=== PATIENT | female | born 1960 | race Two or more races ===

== ENCOUNTER 2023-01-04 04:10 | Inpatient (IN) | payer OTHER ==
[~2023-01-04] VITALS: Ht 162.6 cm; Wt 56.5 kg
[2023-01-04] MEDS ORDERED: MIDAZOLAM HCL 5 MG/ML-1ML VIAL IV PRN (04:15)
[2023-01-04 04:25] VITALS: PULSE 81; RESP 18; O2SAT 96
[2023-01-04] MEDS ORDERED: levETIRAcetam 500 MG/5ML INJ IV ONE (05:05)
[2023-01-04 05:15] LABS: Alanine Aminotransferase 19 U/L (7-40); Albumin 2.7 g/dL (3.2-4.8); Alkaline Phosphatase 116 U/L (46-116); Anion Gap 4 (5-15); Aspartate Aminotransferase 42 U/L (13-40); BUN/Creatinine Ratio 19.3 (10.0-20.0); Bilirubin, Total 1.6 mg/dL (0.2-1.0); Blood Urea Nitrogen 11 mg/dL (9-23); Calcium 8.6 mg/dL (8.7-10.4); Carbon Dioxide 27 mmol/L (20-30); Chloride 106 mmol/L (98-107); Glucose 127 mg/dL (74-106); Potassium 3.7 mmol/L (3.5-5.1); Sodium 137 mmol/L (136-145); Total Protein 7.5 g/dL (5.7-8.2)
[2023-01-04 05:17] LABS: INR 1.49 (0.9-1.15); Partial Thromboplastin Time 34.7 SEC (24.5-34.5); Prothrombin Time 15.2 sec (9.3-11.8)
[2023-01-04 05:32] LABS: Basophils # (auto) 0 10 ^3/uL (0-0.2); Basophils % (auto) 0.7 % (0.0-2.0); Eosinophils # (auto) 0.1 10 ^3/uL (0-0.8); Eosinophils % (auto) 3.2 % (0.0-7.0); Hematocrit 30.1 % (36.0-46.0); Hemoglobin 9.9 g/dL (12.2-16.2); Lymphocytes # (auto) 0.9 10 ^3/uL (0.4-5.4); Mean Corpuscular Hemoglobin 31.5 pg (28.0-32.0); Mean Corpuscular Hgb Conc. 32.8 g/dL (32.0-36.0); Mean Corpuscular Volume 95.9 fL (80.0-100.0); Monocytes # (auto) 0.5 10 ^3/uL (0-1.3); Monocytes % (auto) 13.3 % (0.0-12.0); Neutrophils # (auto) 2.1 10 ^3/uL (1.6-8.6); Neutrophils % (auto) 57.8 % (37.0-80.0); Nucleated Red Blood Cells % 0.3 %; Red Blood Cells 3.14 10^6/uL (4.0-5.20); White Blood Cell 3.6 10^3/uL (4.4-10.8)
[2023-01-04 05:33] LABS: Red Cell Distribution Width 20.6 % (11.8-14.3)
[2023-01-04 07:40] VITALS: PULSE 65; RESP 12; O2SAT 100
[2023-01-04 09:03] LABS: Bilirubin, Direct 0.9 mg/dL (<0.3)
[2023-01-04] MEDS ORDERED: ENOXAPARIN SOD 40 MG/0.4 ML SYRINGE SC SCH (10:15)
[2023-01-04] MEDS ORDERED: ONDANSETRON HCL 4 MG/2 ML VIAL IV PRN (10:15)
[2023-01-04 11:33] LABS: Urine Bacteria FEW /hpf (None Seen); Urine Blood Negative /uL (Negative); Urine Clarity HAZY (Clear); Urine Color Yellow (Yellow); Urine Hyaline Cast FEW /lpf (0 - 2); Urine Mucus FEW (None Seen); Urine Protein, UAD TRACE (Negative); Urine Specific Gravity 1.026 (1.001-1.035); Urine WBC 6 /hpf (0 - 5); Urine pH 6.5 (5.0-8.0)
[2023-01-04] MEDS ORDERED: ALBUMIN 5% 250 ML IV ONE (14:00)
[2023-01-04 14:15] LABS: Amphetamine Screen, Urine Neg (NEGATIVE); Barbiturate Scree,Urine Neg (NEGATIVE); Benzodiazephine Screen, Urine Pos (NEGATIVE); Cocaine Screen, Urine Neg (NEGATIVE); Opiate Scree,Urine Neg (NEGATIVE); Phencyclidine Screen, Urine Neg (NEGATIVE)
[2023-01-04 14:16] LABS: Cannabinoid Screen, Urine Neg (NEGATIVE)
[2023-01-04] MEDS: SODIUM CHLORIDE 0.9% 1,000 ML IV SCH (14:50)
[2023-01-04 17:20] LABS: Hepatitis A Ab IgM Negative; Hepatitis B Core IgM Negative; Hepatitis B Surface Antigen Negative (Negative)
[2023-01-04 17:36] LABS: Hepatitis C Antibody Positive (Negative)
[2023-01-04 19:35] VITALS: PULSE 66; RESP 18; O2SAT 96
[2023-01-05] VITALS (8 sets, daily range): BP systolic 133–152; BP diastolic 53–80; PULSE 51–72; RESP 16–20; TEMP 97.1–98.6; O2SAT 99–100
[2023-01-05] MEDS: SODIUM CHLORIDE 0.9% 1,000 ML IV SCH (03:05)
[2023-01-05] MEDS ORDERED: LEVE500T40 PO (03:51)
[2023-01-05] MEDS ORDERED: ZOFR4T PO (03:53)
[2023-01-05 06:51] LABS: Alanine Aminotransferase 13 U/L (7-40); Albumin 2.4 g/dL (3.2-4.8); Alkaline Phosphatase 89 U/L (46-116); Anion Gap 4 (5-15); Aspartate Aminotransferase 40 U/L (13-40); BUN/Creatinine Ratio 12.5 (10.0-20.0); Blood Urea Nitrogen 5 mg/dL (9-23); Calcium 8.2 mg/dL (8.5-10.1); Carbon Dioxide 26 mmol/L (20-30); Chloride 106 mmol/L (98-107); Glucose 76 mg/dL (74-106); Potassium 3.9 mmol/L (3.5-5.1); Sodium 136 mmol/L (136-145)
[2023-01-05 06:52] LABS: Bilirubin, Total 1.8 mg/dL (0.2-1.0); Total Protein 6.7 g/dL (5.7-8.2)
[2023-01-05 08:12] LABS: Basophils # (auto) 0 10 ^3/uL (0-0.2); Basophils % (auto) 0.7 % (0.0-2.0); Eosinophils # (auto) 0.1 10 ^3/uL (0-0.8); Eosinophils % (auto) 4.5 % (0.0-7.0); Hematocrit 27.8 % (36.0-46.0); Hemoglobin 9.1 g/dL (12.2-16.2); Lymphocytes % (auto) 29.7 % (10.0-50.0); Mean Corpuscular Hemoglobin 31.6 pg (28.0-32.0); Mean Corpuscular Hgb Conc. 32.7 g/dL (32.0-36.0); Mean Corpuscular Volume 96.8 fL (80.0-100.0); Monocytes # (auto) 0.5 10 ^3/uL (0-1.3); Monocytes % (auto) 16.7 % (0.0-12.0); Neutrophils # (auto) 1.5 10 ^3/uL (1.6-8.6); Neutrophils % (auto) 48.4 % (37.0-80.0); Nucleated Red Blood Cells % 0.6 %; Red Blood Cells 2.87 10^6/uL (4.0-5.20); Red Cell Distribution Width 19.9 % (11.8-14.3); White Blood Cell 3.2 10^3/uL (4.4-10.8)
[2023-01-05] MEDS: LORazepam 2MG/ML-1ML VIAL IV PRN ×3 (10:11→21:18)
[2023-01-05] MEDS ORDERED: D5W/SOD CHLO 0.9% 1,000 ML IV SCH (11:15)
[2023-01-05] MEDS ORDERED: THIAMINE 100mg/ml INJ (200mg/2ml VIAL) IM ONE (11:15)
[2023-01-05] MEDS ORDERED: CYANOCOBALAMIN (B-12) 1000 MCG/1 ML VIAL IM ONE (11:15)
[2023-01-05] MEDS ORDERED: DEXTROSE (50%) 50ML SYRG IV PRN (11:15)
[2023-01-05] MEDS ORDERED: rifAXIMin 550 MG TAB PO ONE (11:53)
[2023-01-05] MEDS ORDERED: ACCU-CHEK COMFORT CURVE STRIP VI SCH (12:00)
[2023-01-05] MEDS: LACTULOSE 10g/15ml SOLN 473ML PR SCH ×2 (12:00→17:54)
[2023-01-05] MEDS: NEOMYCIN SULFATE 500 MG TAB PO SCH ×2 (12:00→17:53)
[2023-01-05 13:38] LABS: INR 1.49 (0.9-1.15); Partial Thromboplastin Time 33.5 SEC (24.5-34.5); Prothrombin Time 15.2 sec (9.3-11.8)
[2023-01-05] MEDS ORDERED: phytonadione 10 MG in SODIUM CHL 0.9% 50 ML IV ONE (16:00)
[2023-01-05] MEDS ORDERED: CLINIMIX PER PHARMACY 0 ML IV SCH (16:00)
[2023-01-05] MEDS ORDERED: ACAM1TAB PO (16:34)
[2023-01-05] MEDS ORDERED: KEP500T PO (16:34)
[2023-01-05] MEDS ORDERED: PANT40TA2 PO (16:34)
[2023-01-05] MEDS ORDERED: ONDA-155 PO (16:34)
[2023-01-05] MEDS ORDERED: LACO150T3 PO (16:34)
[2023-01-05] MEDS ORDERED: FOLI-119 PO (16:34)
[2023-01-05] MEDS ORDERED: SODIUM CHLORIDE 0.9% 1,000 ML IV SCH (19:30)
[2023-01-05] MEDS ORDERED: AMINO ACID INFUSION IN D10W 1,000 ML IV NR (20:00)
[2023-01-05] MEDS ORDERED: DEXTROSE (50%) 50ML SYRG IV SCH (20:00)
[2023-01-05] MEDS ORDERED: PATIENTS OWN MEDICATION PO SCH (22:00)
[2023-01-05] MEDS: rifAXIMin 550 MG TAB PO SCH (22:00)
[2023-01-06] VITALS (14 sets, daily range): BP systolic 102–128; BP diastolic 50–88; PULSE 53–71; RESP 16–25; TEMP 97.5–98; O2SAT 92–100
[2023-01-06] MEDS: ACCU-CHEK COMFORT CURVE STRIP VI SCH ×4 (00:03→15:59)
[2023-01-06] MEDS: LORazepam 2MG/ML-1ML VIAL IV PRN ×2 (01:32→10:55)
[2023-01-06] MEDS: InsuLIN REG 1unit/0.01ml Soln (100units/ml) SC SCH ×4 (05:31→15:59)
[2023-01-06] MEDS: LACTULOSE 10g/15ml SOLN 473ML PR SCH ×3 (05:31→11:32)
[2023-01-06] MEDS: NEOMYCIN SULFATE 500 MG TAB PO SCH ×4 (05:31→14:53)
[2023-01-06 06:41] LABS: Basophils # (auto) 0 10 ^3/uL (0-0.2); Basophils % (auto) 0.6 % (0.0-2.0); Eosinophils # (auto) 0.2 10 ^3/uL (0-0.8); Eosinophils % (auto) 4.8 % (0.0-7.0); Hemoglobin 8.8 g/dL (12.2-16.2); Lymphocytes # (auto) 0.9 10 ^3/uL (0.4-5.4); Lymphocytes % (auto) 26.8 % (10.0-50.0); Mean Corpuscular Hemoglobin 31.4 pg (28.0-32.0); Mean Corpuscular Hgb Conc. 32.8 g/dL (32.0-36.0); Mean Corpuscular Volume 95.7 fL (80.0-100.0); Monocytes # (auto) 0.5 10 ^3/uL (0-1.3); Monocytes % (auto) 13.9 % (0.0-12.0); Neutrophils # (auto) 1.8 10 ^3/uL (1.6-8.6); Neutrophils % (auto) 53.9 % (37.0-80.0); Nucleated Red Blood Cells % 0.3 %; Red Blood Cells 2.82 10^6/uL (4.0-5.20); White Blood Cell 3.3 10^3/uL (4.4-10.8)
[2023-01-06 06:52] LABS: Red Cell Distribution Width 20.2 % (11.8-14.3)
[2023-01-06 06:54] LABS: Alanine Aminotransferase 10 U/L (7-40); Alkaline Phosphatase 82 U/L (46-116); Chloride 106 mmol/L (98-107)
[2023-01-06 06:55] LABS: Albumin 2.4 g/dL (3.2-4.8); Aspartate Aminotransferase 36 U/L (13-40); Glucose 104 mg/dL (74-106); Potassium 3.2 mmol/L (3.5-5.1); Sodium 135 mmol/L (136-145)
[2023-01-06 07:00] LABS: INR 1.49 (0.9-1.15); Partial Thromboplastin Time 35.3 SEC (24.5-34.5); Prothrombin Time 15.2 sec (9.3-11.8)
[2023-01-06] MEDS: rifAXIMin 550 MG TAB PO SCH ×2 (07:05→21:52)
[2023-01-06 07:08] LABS: CRP High Sensitivity 0.08 mg/dL (<1.0); Magnesium 1.3 mg/dL (1.6-2.6)
[2023-01-06 07:09] LABS: Phosphorus 3.6 mg/dL (2.4-5.1)
[2023-01-06 07:10] LABS: Bilirubin, Total 1.5 mg/dL (0.2-1.0); Total Protein 6.4 g/dL (5.7-8.2)
[2023-01-06 07:25] LABS: Anion Gap 3 (5-15); BUN/Creatinine Ratio 17.9 (10.0-20.0); Blood Urea Nitrogen 7 mg/dL (9-23); Carbon Dioxide 26 mmol/L (20-30)
[2023-01-06 08:39] LABS: Erythrocyte Sedimentation Rate 21 mm/hr (0-20)
[2023-01-06] MEDS ORDERED: LACTULOSE 20Gm/30ML SOLN PO ONE (08:45)
[2023-01-06] MEDS: THIAMINE 100mg/ml INJ (200mg/2ml VIAL) IV SCH (09:35)
[2023-01-06] MEDS ORDERED: MAGNESIUM SULFATE 1GM/100ML 100 ML IV ONE (10:00)
[2023-01-06] MEDS: POTASSIUM CHL 20MEQ/100ML 100 ML IV SCH ×2 (10:20→12:50)
[2023-01-06] MEDS: FOLIC ACID 1 MG in D5W 5% 50 ML INJ SCH (11:10)
[2023-01-06] MEDS: SODIUM CHLORIDE 0.9% 1,000 ML IV SCH (11:10)
[2023-01-06] MEDS ORDERED: PPN PER PHARMACY 0 ML IV SCH (11:15)
[2023-01-06] MEDS ORDERED: LACTULOSE 20Gm/30ML SOLN PO SCH (12:00)
[2023-01-06] MEDS ORDERED: LACTULOSE 10g/15ml SOLN 473ML PR SCH (14:00)
[2023-01-06 15:45] LABS: Alanine Aminotransferase 14 U/L (7-40); Albumin 2.6 g/dL (3.2-4.8); Alkaline Phosphatase 89 U/L (46-116); Anion Gap 6 (5-15); Aspartate Aminotransferase 48 U/L (13-40); Blood Urea Nitrogen 6 mg/dL (9-23); Calcium 7.9 mg/dL (8.7-10.4); Carbon Dioxide 25 mmol/L (20-30); Chloride 103 mmol/L (98-107); Glucose 113 mg/dL (74-106); Sodium 134 mmol/L (136-145)
[2023-01-06 15:46] LABS: Bilirubin, Total 1.3 mg/dL (0.2-1.0); Total Protein 6.9 g/dL (5.7-8.2)
[2023-01-06 15:56] LABS: INR 1.44 (0.9-1.15); Partial Thromboplastin Time 33.4 SEC (24.5-34.5); Prothrombin Time 14.8 sec (9.3-11.8)
[2023-01-06 16:06] LABS: Base Excess -1.4 mmol/L (-2.0-2.0)
[2023-01-06] MEDS ORDERED: FAT EMULSION IV NR ×9 (20:00)
[2023-01-06] MEDS ORDERED: SODIUM ACETATE IV NR ×9 (20:00)
[2023-01-06] MEDS ORDERED: [UNRECOGNIZED DRUG - OTHER] IV NR ×9 (20:00)
[2023-01-06] MEDS ORDERED: POTASSIUM CHLORIDE IV NR ×9 (20:00)
[2023-01-06] MEDS: FAMOTIDINE (10MG/ML) 2ML VL IV SCH (21:52)
[2023-01-06] MEDS: LACTULOSE 20Gm/30ML SOLN PO SCH (21:52)
[2023-01-07] VITALS (18 sets, daily range): BP systolic 97–134; BP diastolic 44–78; PULSE 62–111; RESP 16–28; TEMP 96.3–101.8; O2SAT 91–100
[2023-01-07] MEDS: SODIUM CHLORIDE 0.9% 1,000 ML IV SCH (00:18)
[2023-01-07] MEDS: LORazepam 2MG/ML-1ML VIAL IV PRN (00:56)
[2023-01-07] MEDS: ACCU-CHEK COMFORT CURVE STRIP VI SCH ×5 (00:56→23:12)
[2023-01-07] MEDS: LACTULOSE 20Gm/30ML SOLN PO SCH ×5 (02:04→23:36)
[2023-01-07 05:26] LABS: Alanine Aminotransferase 15 U/L (7-40); Alkaline Phosphatase 92 U/L (46-116); Anion Gap 7 (5-15); Aspartate Aminotransferase 42 U/L (13-40); BUN/Creatinine Ratio 14.3 (10.0-20.0); Blood Urea Nitrogen 7 mg/dL (9-23); Chloride 104 mmol/L (98-107); Glucose 122 mg/dL (74-106); Lipase 93 U/L (12-53); Magnesium 1.3 mg/dL (1.6-2.6); Potassium 3.5 mmol/L (3.5-5.1); Sodium 134 mmol/L (136-145)
[2023-01-07 05:27] LABS: Albumin 2.7 g/dL (3.2-4.8); Bilirubin, Total 1.6 mg/dL (0.2-1.0); Phosphorus 2.4 mg/dL (2.4-5.1); Total Protein 7.2 g/dL (5.7-8.2)
[2023-01-07 05:31] LABS: Carbon Dioxide 22 mmol/L (20-30)
[2023-01-07 05:38] LABS: INR 1.42 (0.9-1.15); Partial Thromboplastin Time 32.3 SEC (24.5-34.5); Prothrombin Time 14.6 sec (9.3-11.8)
[2023-01-07 05:41] LABS: Triglycerides 36 mg/dL (< 150)
[2023-01-07] MEDS: NEOMYCIN SULFATE 500 MG TAB PO SCH ×5 (05:46→23:12)
[2023-01-07] MEDS: InsuLIN REG 1unit/0.01ml Soln (100units/ml) SC SCH ×5 (06:00→23:36)
[2023-01-07 06:36] LABS: Erythrocyte Sedimentation Rate 23 mm/hr (0-20)
[2023-01-07 06:58] LABS: Hematocrit 31.3 % (36.0-46.0); Mean Corpuscular Hemoglobin 30.5 pg (28.0-32.0); Mean Corpuscular Hgb Conc. 31.9 g/dL (32.0-36.0); Mean Corpuscular Volume 95.6 fL (80.0-100.0); Red Blood Cells 3.27 10^6/uL (4.0-5.20); Red Cell Distribution Width 19.7 % (11.8-14.3); White Blood Cell 12.2 10^3/uL (4.4-10.8)
[2023-01-07] MEDS: FAMOTIDINE (10MG/ML) 2ML VL IV SCH ×2 (07:26→23:11)
[2023-01-07] MEDS: THIAMINE 100mg/ml INJ (200mg/2ml VIAL) IV SCH (07:26)
[2023-01-07 07:34] LABS: Basophils % (manual) 0 (0.0-2.0); Blast Cells 0; Eosinophils % (manual) 0 (0-7); Lymphocytes % (manual) 0 (10.0-50.0); Metamyelocytes % 0; Myelocytes % 0; Promyelocytes % 0; Reactive Lymphocytes 0
[2023-01-07 08:03] LABS: Band Neutrophils % (manual) 3; Monocytes % (manual) 3 (0-12)
[2023-01-07 08:04] LABS: Platelet Estimate Adequate
[2023-01-07] MEDS: rifAXIMin 550 MG TAB PO SCH ×2 (09:50→23:11)
[2023-01-07] MEDS: FOLIC ACID 1 MG in D5W 5% 50 ML INJ SCH (10:34)
[2023-01-07] MEDS ORDERED: MAGNESIUM SULFATE 1GM/100ML 100 ML IV ONE ×2 (12:00→14:00)
[2023-01-07] MEDS ORDERED: cefTRIAXone 1GM/50ML D5W 50 ML IV ONE (12:30)
[2023-01-07] MEDS ORDERED: VANCOMYCIN 1GM/250ML 250 ML IV ONE (14:00)
[2023-01-07] MEDS ORDERED: POTASSIUM CHL 20MEQ/100ML 100 ML IV ONE (14:00)
[2023-01-07] MEDS ORDERED: VANCOMYCIN PER PHARMACY 0 MG IV SCH (14:00)
[2023-01-07] MEDS ORDERED: SODIUM CHLORIDE 0.9% 1,000 ML IV SCH (15:00)
[2023-01-07] MEDS ORDERED: LACTULOSE 20Gm/30ML SOLN PO SCH (16:00)
[2023-01-07] MEDS ORDERED: [UNRECOGNIZED DRUG - OTHER] IV NR ×10 (20:00)
[2023-01-07] MEDS ORDERED: POTASSIUM ACETATE IV NR ×10 (20:00)
[2023-01-07] MEDS ORDERED: SODIUM ACETATE IV NR ×10 (20:00)
[2023-01-07] MEDS ORDERED: FAT EMULSION IV NR ×10 (20:00)
[2023-01-08] VITALS (21 sets, daily range): BP systolic 103–141; BP diastolic 52–76; PULSE 56–89; RESP 9–29; TEMP 96.6–97.8; O2SAT 90–100
[2023-01-08] MEDS: VANCOMYCIN 750mg/250ml 250 ML IV SCH ×2 (01:54→18:22)
[2023-01-08 05:05] LABS: Basophils # (auto) 0 10 ^3/uL (0-0.2); Basophils % (auto) 0.2 % (0.0-2.0); Eosinophils # (auto) 0.3 10 ^3/uL (0-0.8); Eosinophils % (auto) 3.3 % (0.0-7.0); Hematocrit 28.6 % (36.0-46.0); Hemoglobin 9.3 g/dL (12.2-16.2); Lymphocytes # (auto) 0.7 10 ^3/uL (0.4-5.4); Lymphocytes % (auto) 8.2 % (10.0-50.0); Mean Corpuscular Hemoglobin 31.2 pg (28.0-32.0); Mean Corpuscular Hgb Conc. 32.7 g/dL (32.0-36.0); Mean Corpuscular Volume 95.6 fL (80.0-100.0); Monocytes # (auto) 0.7 10 ^3/uL (0-1.3); Monocytes % (auto) 8.2 % (0.0-12.0); Neutrophils # (auto) 6.6 10 ^3/uL (1.6-8.6); Neutrophils % (auto) 80.1 % (37.0-80.0); Red Blood Cells 2.99 10^6/uL (4.0-5.20); Red Cell Distribution Width 19.8 % (11.8-14.3); White Blood Cell 8.3 10^3/uL (4.4-10.8)
[2023-01-08 05:23] LABS: Alanine Aminotransferase 14 U/L (7-40); Albumin 2.5 g/dL (3.2-4.8); Alkaline Phosphatase 87 U/L (46-116); Anion Gap 3 (5-15); Aspartate Aminotransferase 43 U/L (13-40); BUN/Creatinine Ratio 18.2 (10.0-20.0); Bilirubin, Total 1.4 mg/dL (0.2-1.0); Blood Urea Nitrogen 8 mg/dL (9-23); Carbon Dioxide 26 mmol/L (20-30); Chloride 104 mmol/L (98-107); Glucose 106 mg/dL (74-106); Magnesium 1.7 mg/dL (1.6-2.6); Phosphorus 2.7 mg/dL (2.4-5.1); Potassium 3.2 mmol/L (3.5-5.1); Sodium 133 mmol/L (136-145); Total Protein 6.7 g/dL (5.7-8.2)
[2023-01-08] MEDS: LACTULOSE 20Gm/30ML SOLN PO SCH ×3 (05:32→21:38)
[2023-01-08] MEDS: NEOMYCIN SULFATE 500 MG TAB PO SCH ×3 (05:32→18:00)
[2023-01-08] MEDS: ACCU-CHEK COMFORT CURVE STRIP VI SCH ×3 (05:32→18:22)
[2023-01-08] MEDS: InsuLIN REG 1unit/0.01ml Soln (100units/ml) SC SCH ×3 (05:41→18:00)
[2023-01-08 08:44] LABS: Erythrocyte Sedimentation Rate 24 mm/hr (0-20)
[2023-01-08] MEDS: cefTRIAXone 1GM/50ML D5W 50 ML IV SCH (09:13)
[2023-01-08 09:25] LABS: INR 1.71 (0.9-1.15); Prothrombin Time 17.3 sec (9.3-11.8)
[2023-01-08] MEDS: rifAXIMin 550 MG TAB PO SCH ×2 (10:00→22:18)
[2023-01-08] MEDS: FAMOTIDINE (10MG/ML) 2ML VL IV SCH ×2 (10:15→21:37)
[2023-01-08] MEDS: THIAMINE 100mg/ml INJ (200mg/2ml VIAL) IV SCH (10:15)
[2023-01-08] MEDS: FOLIC ACID 1 MG in D5W 5% 50 ML INJ SCH (10:15)
[2023-01-08] MEDS: POTASSIUM CHL 20MEQ/100ML 100 ML IV SCH ×2 (10:45→13:04)
[2023-01-08] MEDS ORDERED: SODIUM CHLORIDE 0.9% 1,000 ML IV SCH (17:30)
[2023-01-08] MEDS ORDERED: PPN PER PHARMACY IV NR ×11 (20:00)
[2023-01-08] MEDS: LORazepam 2MG/ML-1ML VIAL IV PRN (20:59)
[2023-01-08] MEDS: LACOSAMIDE 50 MG TAB PO SCH (21:37)
[2023-01-09] VITALS (16 sets, daily range): BP systolic 127–152; BP diastolic 56–80; PULSE 60–113; RESP 13–28; TEMP 97.2–99.7; O2SAT 82–100
[2023-01-09] MEDS: InsuLIN REG 1unit/0.01ml Soln (100units/ml) SC SCH ×4 (01:00→18:00)
[2023-01-09] MEDS: NEOMYCIN SULFATE 500 MG TAB PO SCH ×4 (01:17→18:00)
[2023-01-09] MEDS: ACCU-CHEK COMFORT CURVE STRIP VI SCH ×4 (01:18→18:00)
[2023-01-09] MEDS: VANCOMYCIN 750mg/250ml 250 ML IV SCH ×2 (01:27→14:00)
[2023-01-09 05:19] LABS: Basophils # (auto) 0 10 ^3/uL (0-0.2); Basophils % (auto) 0.3 % (0.0-2.0); Eosinophils # (auto) 0.3 10 ^3/uL (0-0.8); Hematocrit 28.9 % (36.0-46.0); Hemoglobin 9.5 g/dL (12.2-16.2); Lymphocytes # (auto) 0.5 10 ^3/uL (0.4-5.4); Lymphocytes % (auto) 8.7 % (10.0-50.0); Mean Corpuscular Hemoglobin 31.3 pg (28.0-32.0); Mean Corpuscular Volume 94.7 fL (80.0-100.0); Monocytes # (auto) 0.6 10 ^3/uL (0-1.3); Monocytes % (auto) 10.2 % (0.0-12.0); Neutrophils # (auto) 4.9 10 ^3/uL (1.6-8.6); Neutrophils % (auto) 76.8 % (37.0-80.0); Nucleated Red Blood Cells % 0.1 %; Red Blood Cells 3.05 10^6/uL (4.0-5.20); White Blood Cell 6.3 10^3/uL (4.4-10.8)
[2023-01-09 05:35] LABS: Alanine Aminotransferase 15 U/L (7-40); Albumin 2.6 g/dL (3.2-4.8); Alkaline Phosphatase 96 U/L (46-116); Anion Gap 2 (5-15); Aspartate Aminotransferase 46 U/L (13-40); Bilirubin, Total 1.4 mg/dL (0.2-1.0); Calcium 8.2 mg/dL (8.7-10.4); Carbon Dioxide 27 mmol/L (20-30); Chloride 104 mmol/L (98-107); Glucose 108 mg/dL (74-106); Lipase 61 U/L (12-53); Magnesium 1.7 mg/dL (1.6-2.6); Phosphorus 3.5 mg/dL (2.4-5.1); Potassium 3.6 mmol/L (3.5-5.1); Sodium 133 mmol/L (136-145)
[2023-01-09 05:40] LABS: BUN/Creatinine Ratio 14.7 (10.0-20.0); Blood Urea Nitrogen < 5 mg/dL (9-23)
[2023-01-09 06:09] LABS: Triglycerides 40 mg/dL (< 150)
[2023-01-09] MEDS: SODIUM CHLORIDE 0.9% 1,000 ML IV SCH (07:15)
[2023-01-09 08:31] LABS: INR 1.6 (0.9-1.15); Prothrombin Time 16.3 sec (9.3-11.8)
[2023-01-09 09:02] LABS: Erythrocyte Sedimentation Rate 29 mm/hr (0-20)
[2023-01-09] MEDS: cefTRIAXone 1GM/50ML D5W 50 ML IV SCH (09:30)
[2023-01-09] MEDS: LACOSAMIDE 50 MG TAB PO SCH ×2 (09:30→22:08)
[2023-01-09] MEDS ORDERED: LORazepam 2MG/ML-1ML VIAL IV PRN ×2 (09:45→11:45)
[2023-01-09] MEDS: rifAXIMin 550 MG TAB PO SCH ×2 (10:00→22:24)
[2023-01-09] MEDS: LACTULOSE 20Gm/30ML SOLN PO SCH ×3 (10:00→18:00)
[2023-01-09] MEDS: FAMOTIDINE (10MG/ML) 2ML VL IV SCH ×2 (10:22→22:08)
[2023-01-09] MEDS: THIAMINE 100mg/ml INJ (200mg/2ml VIAL) IV SCH (10:22)
[2023-01-09] MEDS: FOLIC ACID 1 MG in D5W 5% 50 ML INJ SCH (10:23)
[2023-01-10] VITALS (21 sets, daily range): BP systolic 85–146; BP diastolic 47–77; PULSE 61–88; RESP 12–26; TEMP 98–98.5; O2SAT 92–100
[2023-01-10] MEDS: ACCU-CHEK COMFORT CURVE STRIP VI SCH ×5 (00:32→23:38)
[2023-01-10] MEDS: NEOMYCIN SULFATE 500 MG TAB PO SCH ×5 (00:33→23:32)
[2023-01-10] MEDS: LACTULOSE 20Gm/30ML SOLN PO SCH ×3 (00:33→18:00)
[2023-01-10] MEDS: VANCOMYCIN 750mg/250ml 250 ML IV SCH ×2 (01:47→14:00)
[2023-01-10] MEDS: SODIUM CHLORIDE 0.9% 1,000 ML IV SCH (03:22)
[2023-01-10 05:34] LABS: Basophils # (auto) 0 10 ^3/uL (0-0.2); Basophils % (auto) 0.3 % (0.0-2.0); Eosinophils # (auto) 0.2 10 ^3/uL (0-0.8); Eosinophils % (auto) 4.4 % (0.0-7.0); Hematocrit 27.3 % (36.0-46.0); Hemoglobin 9.1 g/dL (12.2-16.2); Lymphocytes # (auto) 0.8 10 ^3/uL (0.4-5.4); Lymphocytes % (auto) 16.6 % (10.0-50.0); Mean Corpuscular Hemoglobin 31.5 pg (28.0-32.0); Mean Corpuscular Hgb Conc. 33.4 g/dL (32.0-36.0); Mean Corpuscular Volume 94.2 fL (80.0-100.0); Monocytes # (auto) 0.7 10 ^3/uL (0-1.3); Monocytes % (auto) 14.6 % (0.0-12.0); Neutrophils % (auto) 64.1 % (37.0-80.0); Nucleated Red Blood Cells % 0.1 %; Red Cell Distribution Width 19.6 % (11.8-14.3); White Blood Cell 4.7 10^3/uL (4.4-10.8)
[2023-01-10 05:43] LABS: INR 1.55 (0.9-1.15); Partial Thromboplastin Time 40.1 SEC (24.5-34.5); Prothrombin Time 15.8 sec (9.3-11.8)
[2023-01-10 05:51] LABS: Alanine Aminotransferase 17 U/L (7-40); Albumin 2.6 g/dL (3.2-4.8); Alkaline Phosphatase 87 U/L (46-116); Anion Gap 5 (5-15); Aspartate Aminotransferase 44 U/L (13-40); BUN/Creatinine Ratio 10.9 (10.0-20.0); Blood Urea Nitrogen 5 mg/dL (9-23); Calcium 8.1 mg/dL (8.7-10.4); Carbon Dioxide 27 mmol/L (20-30); Chloride 103 mmol/L (98-107); Glucose 88 mg/dL (74-106); Lipase 57 U/L (12-53); Magnesium 1.7 mg/dL (1.6-2.6); Potassium 3.3 mmol/L (3.5-5.1); Sodium 135 mmol/L (136-145)
[2023-01-10 05:52] LABS: Bilirubin, Total 1.2 mg/dL (0.2-1.0); Phosphorus 4.2 mg/dL (2.4-5.1); Total Protein 6.5 g/dL (5.7-8.2)
[2023-01-10] MEDS: InsuLIN REG 1unit/0.01ml Soln (100units/ml) SC SCH ×5 (06:00→23:38)
[2023-01-10 06:19] LABS: Erythrocyte Sedimentation Rate 33 mm/hr (0-20)
[2023-01-10] MEDS ORDERED: MAGNESIUM OXIDE 400 MG TAB PO ONE (07:45)
[2023-01-10] MEDS ORDERED: POTASSIUM CHL 20 Meq TABLET PO ONE (07:45)
[2023-01-10] MEDS: cefTRIAXone 1GM/50ML D5W 50 ML IV SCH (09:10)
[2023-01-10] MEDS: THIAMINE 100mg/ml INJ (200mg/2ml VIAL) IV SCH (10:40)
[2023-01-10] MEDS: FAMOTIDINE (10MG/ML) 2ML VL IV SCH ×2 (10:40→21:46)
[2023-01-10] MEDS: FOLIC ACID 1 MG in D5W 5% 50 ML INJ SCH (10:43)
[2023-01-10] MEDS: LACOSAMIDE 50 MG TAB PO SCH ×2 (10:44→21:15)
[2023-01-10] MEDS: rifAXIMin 550 MG TAB PO SCH ×2 (10:45→21:47)
[2023-01-10] MEDS ORDERED: LACTULOSE 20Gm/30ML SOLN PO SCH (14:00)
[2023-01-10] MEDS: LINEZOLID 600MG/300ML 300 ML IV SCH ×2 (16:00→18:00)
[2023-01-11] VITALS (17 sets, daily range): BP systolic 100–149; BP diastolic 43–80; PULSE 63–94; RESP 17–32; TEMP 97.5–103; O2SAT 90–98
[2023-01-11] MEDS: SODIUM CHLORIDE 0.9% 1,000 ML IV SCH ×2 (04:18→12:15)
[2023-01-11] MEDS ORDERED: ACETAMINOPHEN 650 mg PER 20.3 mL UD PO PRN (04:45)
[2023-01-11 05:15] LABS: Basophils # (auto) 0 10 ^3/uL (0-0.2); Basophils % (auto) 0.5 % (0.0-2.0); Eosinophils # (auto) 0.2 10 ^3/uL (0-0.8); Eosinophils % (auto) 4.4 % (0.0-7.0); Hematocrit 26.5 % (36.0-46.0); Hemoglobin 8.8 g/dL (12.2-16.2); Lymphocytes % (auto) 23.9 % (10.0-50.0); Mean Corpuscular Hemoglobin 31.6 pg (28.0-32.0); Mean Corpuscular Hgb Conc. 33.4 g/dL (32.0-36.0); Mean Corpuscular Volume 94.8 fL (80.0-100.0); Monocytes # (auto) 0.6 10 ^3/uL (0-1.3); Neutrophils # (auto) 2.4 10 ^3/uL (1.6-8.6); Neutrophils % (auto) 57.2 % (37.0-80.0); Red Blood Cells 2.79 10^6/uL (4.0-5.20); Red Cell Distribution Width 19.5 % (11.8-14.3); White Blood Cell 4.2 10^3/uL (4.4-10.8)
[2023-01-11] MEDS: NEOMYCIN SULFATE 500 MG TAB PO SCH ×4 (05:22→23:15)
[2023-01-11] MEDS: LINEZOLID 600MG/300ML 300 ML IV SCH ×2 (05:22→18:06)
[2023-01-11 05:28] LABS: Alanine Aminotransferase 16 U/L (7-40); Albumin 2.6 g/dL (3.2-4.8); Alkaline Phosphatase 89 U/L (46-116); Anion Gap 4 (5-15); Aspartate Aminotransferase 42 U/L (13-40); BUN/Creatinine Ratio 10.2 (10.0-20.0); Bilirubin, Total 1.1 mg/dL (0.2-1.0); Blood Urea Nitrogen 6 mg/dL (9-23); Carbon Dioxide 26 mmol/L (20-30); Chloride 106 mmol/L (98-107); Glucose 89 mg/dL (74-106); Lipase 80 U/L (12-53); Magnesium 1.6 mg/dL (1.6-2.6); Potassium 3.9 mmol/L (3.5-5.1); Sodium 136 mmol/L (136-145); Total Protein 6.4 g/dL (5.7-8.2)
[2023-01-11] MEDS: InsuLIN REG 1unit/0.01ml Soln (100units/ml) SC SCH ×3 (05:59→18:00)
[2023-01-11] MEDS: ACCU-CHEK COMFORT CURVE STRIP VI SCH ×4 (05:59→23:16)
[2023-01-11] MEDS ORDERED: MAGNESIUM OXIDE 400 MG TAB PO ONE (07:45)
[2023-01-11] MEDS ORDERED: IOHEXOL 300 MG/ML 100ML BOTTLE IJ ONE (08:09)
[2023-01-11] MEDS: cefTRIAXone 1GM/50ML D5W 50 ML IV SCH (08:48)
[2023-01-11] MEDS: THIAMINE 100mg/ml INJ (200mg/2ml VIAL) IV SCH (10:59)
[2023-01-11] MEDS: LACOSAMIDE 50 MG TAB PO SCH ×2 (11:00→11:40)
[2023-01-11] MEDS: FOLIC ACID 1 MG in D5W 5% 50 ML INJ SCH (11:00)
[2023-01-11] MEDS: FAMOTIDINE (10MG/ML) 2ML VL IV SCH ×2 (11:00→23:15)
[2023-01-11] MEDS: LACTULOSE 20Gm/30ML SOLN PO SCH ×2 (11:38→23:16)
[2023-01-11] MEDS: rifAXIMin 550 MG TAB PO SCH ×2 (11:38→23:16)
[2023-01-11 16:35] LABS: Urine Bacteria FEW /hpf (None Seen); Urine Blood Negative /uL (Negative); Urine Clarity Clear (Clear); Urine Color Colorless (Yellow); Urine Mucus FEW (None Seen); Urine Protein, UAD Negative (Negative); Urine Specific Gravity 1.021 (1.001-1.035); Urine Urobilinogen Normal (Negative); Urine WBC 8 /hpf (0 - 5)
[2023-01-12] MEDS: NEOMYCIN SULFATE 500 MG TAB PO SCH ×4 (05:06→23:39)
[2023-01-12] MEDS: LINEZOLID 600MG/300ML 300 ML IV SCH ×2 (05:07→18:18)
[2023-01-12] MEDS: ACCU-CHEK COMFORT CURVE STRIP VI SCH ×4 (05:10→23:39)
[2023-01-12] MEDS: SODIUM CHLORIDE 0.9% 1,000 ML IV SCH (05:11)
[2023-01-12] MEDS: InsuLIN REG 1unit/0.01ml Soln (100units/ml) SC SCH ×5 (05:27→23:39)
[2023-01-12 06:21] LABS: Alanine Aminotransferase 13 U/L (7-40); Alkaline Phosphatase 86 U/L (46-116); Anion Gap 4 (5-15); Calcium 7.9 mg/dL (8.7-10.4); Carbon Dioxide 27 mmol/L (20-30); Chloride 106 mmol/L (98-107); Glucose 87 mg/dL (74-106); Lipase 90 U/L (12-53); Potassium 3.7 mmol/L (3.5-5.1); Sodium 137 mmol/L (136-145)
[2023-01-12 06:22] LABS: Magnesium 1.6 mg/dL (1.6-2.6)
[2023-01-12 06:23] LABS: Albumin 2.6 g/dL (3.2-4.8); Aspartate Aminotransferase 40 U/L (13-40)
[2023-01-12 06:24] LABS: Total Protein 6.5 g/dL (5.7-8.2)
[2023-01-12 06:29] LABS: BUN/Creatinine Ratio 9.1 (10.0-20.0); Blood Urea Nitrogen < 5 mg/dL (9-23)
[2023-01-12 06:46] LABS: Basophils # (auto) 0 10 ^3/uL (0-0.2); Basophils % (auto) 0.6 % (0.0-2.0); Eosinophils # (auto) 0.2 10 ^3/uL (0-0.8); Eosinophils % (auto) 3.8 % (0.0-7.0); Hematocrit 26.9 % (36.0-46.0); Hemoglobin 8.9 g/dL (12.2-16.2); Lymphocytes # (auto) 0.8 10 ^3/uL (0.4-5.4); Lymphocytes % (auto) 19.9 % (10.0-50.0); Mean Corpuscular Hemoglobin 31.7 pg (28.0-32.0); Mean Corpuscular Hgb Conc. 33.1 g/dL (32.0-36.0); Mean Corpuscular Volume 95.7 fL (80.0-100.0); Monocytes # (auto) 0.6 10 ^3/uL (0-1.3); Monocytes % (auto) 13.8 % (0.0-12.0); Neutrophils # (auto) 2.6 10 ^3/uL (1.6-8.6); Neutrophils % (auto) 61.9 % (37.0-80.0); Red Blood Cells 2.81 10^6/uL (4.0-5.20); Red Cell Distribution Width 19.7 % (11.8-14.3); White Blood Cell 4.2 10^3/uL (4.4-10.8)
[2023-01-12 08:00] VITALS: PULSE 79; PULSE 82; RESP 17; O2SAT 95
[2023-01-12] MEDS ORDERED: MAGNESIUM OXIDE 400 MG TAB PO ONE (08:15)
[2023-01-12 09:00] VITALS: BP 121/68; PULSE 79; RESP 20; TEMP 98.1; O2SAT 93
[2023-01-12 09:41] LABS: INR 1.55 (0.9-1.15); Partial Thromboplastin Time 37.1 SEC (24.5-34.5); Prothrombin Time 15.8 sec (9.3-11.8)
[2023-01-12] MEDS: cefTRIAXone 1GM/50ML D5W 50 ML IV SCH (09:48)
[2023-01-12] MEDS: LACOSAMIDE 50 MG TAB PO SCH ×2 (09:48→21:13)
[2023-01-12] MEDS: THIAMINE 100mg/ml INJ (200mg/2ml VIAL) IV SCH (09:49)
[2023-01-12] MEDS: FAMOTIDINE (10MG/ML) 2ML VL IV SCH ×2 (09:49→21:16)
[2023-01-12] MEDS: LACTULOSE 20Gm/30ML SOLN PO SCH ×3 (09:49→21:16)
[2023-01-12] MEDS: rifAXIMin 550 MG TAB PO SCH ×2 (10:52→21:28)
[2023-01-12] MEDS: FOLIC ACID 1 MG in D5W 5% 50 ML INJ SCH (10:53)
[2023-01-12 12:10] LABS: Erythrocyte Sedimentation Rate 29 mm/hr (0-20)
[2023-01-12 13:00] VITALS: BP 104/58; PULSE 71; RESP 17; TEMP 97.2; O2SAT 95
[2023-01-12 16:56] VITALS: BP 104/64; PULSE 69; RESP 17; TEMP 98.2; O2SAT 98
[2023-01-12 20:00] VITALS: PULSE 68; PULSE 79; RESP 17; O2SAT 95
[2023-01-13] MEDS: LACTULOSE 20Gm/30ML SOLN PO SCH ×3 (05:09→21:27)
[2023-01-13] MEDS: NEOMYCIN SULFATE 500 MG TAB PO SCH ×3 (05:10→18:17)
[2023-01-13] MEDS: ACCU-CHEK COMFORT CURVE STRIP VI SCH ×3 (05:11→18:17)
[2023-01-13] MEDS: LINEZOLID 600MG/300ML 300 ML IV SCH ×2 (05:11→18:17)
[2023-01-13] MEDS: InsuLIN REG 1unit/0.01ml Soln (100units/ml) SC SCH ×3 (05:14→18:00)
[2023-01-13 05:18] LABS: Basophils # (auto) 0 10 ^3/uL (0-0.2); Basophils % (auto) 0.6 % (0.0-2.0); Eosinophils # (auto) 0.2 10 ^3/uL (0-0.8); Eosinophils % (auto) 5.6 % (0.0-7.0); Hematocrit 27.6 % (36.0-46.0); Hemoglobin 9.3 g/dL (12.2-16.2); Lymphocytes # (auto) 0.8 10 ^3/uL (0.4-5.4); Lymphocytes % (auto) 22.4 % (10.0-50.0); Mean Corpuscular Hemoglobin 31.8 pg (28.0-32.0); Mean Corpuscular Hgb Conc. 33.6 g/dL (32.0-36.0); Mean Corpuscular Volume 94.6 fL (80.0-100.0); Monocytes # (auto) 0.5 10 ^3/uL (0-1.3); Monocytes % (auto) 13.9 % (0.0-12.0); Neutrophils # (auto) 2.1 10 ^3/uL (1.6-8.6); Neutrophils % (auto) 57.5 % (37.0-80.0); Nucleated Red Blood Cells % 0.2 %; Red Blood Cells 2.92 10^6/uL (4.0-5.20); Red Cell Distribution Width 19.4 % (11.8-14.3); White Blood Cell 3.7 10^3/uL (4.4-10.8)
[2023-01-13 05:45] LABS: Alanine Aminotransferase 17 U/L (7-40); Albumin 2.4 g/dL (3.2-4.8); Alkaline Phosphatase 87 U/L (46-116); Anion Gap 5 (5-15); Aspartate Aminotransferase 43 U/L (13-40); BUN/Creatinine Ratio 12.8 (10.0-20.0); Blood Urea Nitrogen 6 mg/dL (9-23); Carbon Dioxide 25 mmol/L (20-30); Chloride 106 mmol/L (98-107); Glucose 84 mg/dL (74-106); Lipase 63 U/L (12-53); Magnesium 1.6 mg/dL (1.6-2.6); Potassium 3.5 mmol/L (3.5-5.1); Sodium 136 mmol/L (136-145)
[2023-01-13 05:46] LABS: Bilirubin, Total 1.2 mg/dL (0.2-1.0); Total Protein 6.5 g/dL (5.7-8.2)
[2023-01-13 05:58] LABS: Erythrocyte Sedimentation Rate 34 mm/hr (0-20)
[2023-01-13 05:59] LABS: CRP High Sensitivity 0.47 mg/dL (<1.0)
[2023-01-13 06:00] LABS: INR 1.58 (0.9-1.15); Partial Thromboplastin Time 36.5 SEC (24.5-34.5); Prothrombin Time 16.1 sec (9.3-11.8)
[2023-01-13 08:00] VITALS: PULSE 61
[2023-01-13 09:00] VITALS: BP 157/80; PULSE 62; RESP 20; O2SAT 96
[2023-01-13] MEDS: cefTRIAXone 1GM/50ML D5W 50 ML IV SCH (09:50)
[2023-01-13] MEDS: THIAMINE 100mg/ml INJ (200mg/2ml VIAL) IV SCH (09:50)
[2023-01-13] MEDS: LACOSAMIDE 50 MG TAB PO SCH ×2 (09:51→21:27)
[2023-01-13] MEDS: FAMOTIDINE (10MG/ML) 2ML VL IV SCH ×2 (09:51→21:27)
[2023-01-13] MEDS: rifAXIMin 550 MG TAB PO SCH ×2 (09:51→21:27)
[2023-01-13] MEDS: FOLIC ACID 1 MG in D5W 5% 50 ML INJ SCH (09:53)
[2023-01-13 12:31] VITALS: BP 135/71; PULSE 58; RESP 18; TEMP 97.5; O2SAT 100
[2023-01-13] MEDS: LORazepam 2MG/ML-1ML VIAL IV PRN (15:40)
[2023-01-13 16:50] VITALS: BP 146/85; PULSE 68; RESP 20; TEMP 97.9; O2SAT 97
[2023-01-13 20:00] VITALS: PULSE 68; PULSE 69; RESP 17; O2SAT 95
[2023-01-13 22:00] VITALS: BP 135/68; PULSE 68; RESP 16; TEMP 97.9; O2SAT 97
[2023-01-14] VITALS (9 sets, daily range): BP systolic 110–137; BP diastolic 61–70; PULSE 66–76; RESP 14–17; TEMP 98–98.7; O2SAT 95–97
[2023-01-14] MEDS: ACCU-CHEK COMFORT CURVE STRIP VI SCH ×4 (00:09→17:27)
[2023-01-14] MEDS: NEOMYCIN SULFATE 500 MG TAB PO SCH ×4 (00:09→17:26)
[2023-01-14] MEDS: LACTULOSE 20Gm/30ML SOLN PO SCH (05:38)
[2023-01-14] MEDS: LINEZOLID 600MG/300ML 300 ML IV SCH ×2 (05:38→17:26)
[2023-01-14] MEDS: InsuLIN REG 1unit/0.01ml Soln (100units/ml) SC SCH ×4 (05:39→17:26)
[2023-01-14] MEDS: FAMOTIDINE (10MG/ML) 2ML VL IV SCH ×2 (09:56→21:46)
[2023-01-14] MEDS: rifAXIMin 550 MG TAB PO SCH ×2 (09:56→21:47)
[2023-01-14] MEDS: cefTRIAXone 1GM/50ML D5W 50 ML IV SCH (09:56)
[2023-01-14] MEDS: LACOSAMIDE 50 MG TAB PO SCH ×2 (09:56→21:47)
[2023-01-14] MEDS: THIAMINE 100mg/ml INJ (200mg/2ml VIAL) IV SCH (09:56)
[2023-01-14] MEDS: FOLIC ACID 1 MG in D5W 5% 50 ML INJ SCH (09:58)
[2023-01-14 10:10] LABS: Basophils # (auto) 0 10 ^3/uL (0-0.2); Basophils % (auto) 0.5 % (0.0-2.0); Eosinophils # (auto) 0.2 10 ^3/uL (0-0.8); Eosinophils % (auto) 5.4 % (0.0-7.0); Hematocrit 29.2 % (36.0-46.0); Hemoglobin 9.6 g/dL (12.2-16.2); Lymphocytes # (auto) 0.7 10 ^3/uL (0.4-5.4); Lymphocytes % (auto) 23.6 % (10.0-50.0); Mean Corpuscular Hgb Conc. 32.8 g/dL (32.0-36.0); Mean Corpuscular Volume 94.4 fL (80.0-100.0); Monocytes # (auto) 0.4 10 ^3/uL (0-1.3); Monocytes % (auto) 13.7 % (0.0-12.0); Neutrophils # (auto) 1.6 10 ^3/uL (1.6-8.6); Neutrophils % (auto) 56.8 % (37.0-80.0); Nucleated Red Blood Cells % 0.3 %; Red Blood Cells 3.09 10^6/uL (4.0-5.20); Red Cell Distribution Width 19.4 % (11.8-14.3); White Blood Cell 2.9 10^3/uL (4.4-10.8)
[2023-01-14] MEDS: LORazepam 2MG/ML-1ML VIAL IV PRN (10:31)
[2023-01-14 10:40] LABS: Alanine Aminotransferase 15 U/L (7-40); Albumin 2.5 g/dL (3.2-4.8); Alkaline Phosphatase 90 U/L (46-116); Anion Gap 4 (5-15); Aspartate Aminotransferase 45 U/L (13-40); Carbon Dioxide 26 mmol/L (20-30); Chloride 105 mmol/L (98-107); Glucose 86 mg/dL (74-106); Lipase 58 U/L (12-53); Magnesium 1.4 mg/dL (1.6-2.6); Potassium 3.5 mmol/L (3.5-5.1); Sodium 135 mmol/L (136-145)
[2023-01-14 10:41] LABS: Bilirubin, Total 1.1 mg/dL (0.2-1.0); Blood Urea Nitrogen < 5 mg/dL (9-23); Total Protein 6.9 g/dL (5.7-8.2)
[2023-01-14] MEDS ORDERED: MAGNESIUM OXIDE 400 MG TAB PO ONE (12:30)
[2023-01-15] VITALS (8 sets, daily range): BP systolic 102–151; BP diastolic 51–73; PULSE 67–78; RESP 16–22; TEMP 97.1–98.5; O2SAT 93–96
[2023-01-15] MEDS: LORazepam 2MG/ML-1ML VIAL IV PRN (00:51)
[2023-01-15] MEDS: InsuLIN REG 1unit/0.01ml Soln (100units/ml) SC SCH ×5 (00:52→23:06)
[2023-01-15] MEDS: ACCU-CHEK COMFORT CURVE STRIP VI SCH ×5 (00:52→23:06)
[2023-01-15] MEDS: NEOMYCIN SULFATE 500 MG TAB PO SCH ×5 (00:53→23:06)
[2023-01-15] MEDS: LINEZOLID 600MG/300ML 300 ML IV SCH ×2 (05:06→17:17)
[2023-01-15 06:32] LABS: Hematocrit 27.6 % (36.0-46.0); Hemoglobin 9.2 g/dL (12.2-16.2); Mean Corpuscular Hemoglobin 31.7 pg (28.0-32.0); Mean Corpuscular Hgb Conc. 33.3 g/dL (32.0-36.0); Mean Corpuscular Volume 95.2 fL (80.0-100.0); Red Cell Distribution Width 18.6 % (11.8-14.3)
[2023-01-15 06:36] LABS: Basophils % (manual) 0 (0.0-2.0); Blast Cells 0; Monocytes % (manual) 0 (0-12); Promyelocytes % 0; Reactive Lymphocytes 0
[2023-01-15 06:59] LABS: Alanine Aminotransferase 18 U/L (7-40); Alkaline Phosphatase 102 U/L (46-116); Anion Gap 4 (5-15); Blood Urea Nitrogen 6 mg/dL (9-23); Calcium 7.8 mg/dL (8.7-10.4); Carbon Dioxide 27 mmol/L (20-30); Chloride 104 mmol/L (98-107); Glucose 78 mg/dL (74-106); Lipase 61 U/L (12-53); Magnesium 1.6 mg/dL (1.6-2.6); Potassium 3.5 mmol/L (3.5-5.1); Sodium 135 mmol/L (136-145)
[2023-01-15 07:00] LABS: Albumin 2.4 g/dL (3.2-4.8); Aspartate Aminotransferase 43 U/L (13-40)
[2023-01-15 07:01] LABS: Total Protein 6.4 g/dL (5.7-8.2)
[2023-01-15 07:37] LABS: Band Neutrophils % (manual) 3; Eosinophils % (manual) 5 (0-7); Lymphocytes % (manual) 31 (10.0-50.0); Metamyelocytes % 1; Myelocytes % 1; Platelet Estimate Decreased
[2023-01-15] MEDS ORDERED: MAGNESIUM OXIDE 400 MG TAB PO ONE (08:30)
[2023-01-15 09:10] LABS: Erythrocyte Sedimentation Rate 28 mm/hr (0-20)
[2023-01-15] MEDS: LACOSAMIDE 50 MG TAB PO SCH ×2 (09:53→22:51)
[2023-01-15] MEDS: cefTRIAXone 1GM/50ML D5W 50 ML IV SCH (09:53)
[2023-01-15] MEDS: rifAXIMin 550 MG TAB PO SCH ×2 (09:53→22:02)
[2023-01-15] MEDS: FAMOTIDINE (10MG/ML) 2ML VL IV SCH ×2 (09:53→22:08)
[2023-01-15] MEDS: LACTULOSE 20Gm/30ML SOLN PO SCH ×2 (09:54→22:02)
[2023-01-15] MEDS ORDERED: LACTULOSE 20Gm/30ML SOLN PO SCH (10:00)
[2023-01-15] MEDS ORDERED: LORazepam 2MG/ML-1ML VIAL IV PRN (11:30)
[2023-01-15] MEDS: CEFEPIME 1GM/ 50ML 50 ML IV SCH ×2 (14:35→22:03)
[2023-01-16] MEDS: LINEZOLID 600MG/300ML 300 ML IV SCH ×2 (05:25→18:28)
[2023-01-16] MEDS: NEOMYCIN SULFATE 500 MG TAB PO SCH ×2 (05:25→12:20)
[2023-01-16] MEDS: ACCU-CHEK COMFORT CURVE STRIP VI SCH (05:25)
[2023-01-16] MEDS: CEFEPIME 1GM/ 50ML 50 ML IV SCH ×3 (05:25→23:37)
[2023-01-16] MEDS: InsuLIN REG 1unit/0.01ml Soln (100units/ml) SC SCH (05:44)
[2023-01-16 06:06] LABS: INR 1.53 (0.9-1.15); Prothrombin Time 15.6 sec (9.3-11.8)
[2023-01-16 06:07] LABS: Alanine Aminotransferase 16 U/L (7-40); Albumin 2.7 g/dL (3.2-4.8); Alkaline Phosphatase 94 U/L (46-116); Anion Gap 6 (5-15); Aspartate Aminotransferase 42 U/L (13-40); Calcium 8.2 mg/dL (8.7-10.4); Carbon Dioxide 25 mmol/L (20-30); Chloride 104 mmol/L (98-107); Glucose 85 mg/dL (74-106); Lipase 52 U/L (12-53); Magnesium 1.5 mg/dL (1.6-2.6); Potassium 3.2 mmol/L (3.5-5.1); Sodium 135 mmol/L (136-145)
[2023-01-16 06:08] LABS: Bilirubin, Total 1.3 mg/dL (0.2-1.0); Total Protein 7.2 g/dL (5.7-8.2)
[2023-01-16 06:12] LABS: Basophils # (auto) 0 10 ^3/uL (0-0.2); Basophils % (auto) 0.7 % (0.0-2.0); Eosinophils # (auto) 0.2 10 ^3/uL (0-0.8); Eosinophils % (auto) 7.1 % (0.0-7.0); Hematocrit 29.7 % (36.0-46.0); Hemoglobin 9.9 g/dL (12.2-16.2); Lymphocytes # (auto) 0.6 10 ^3/uL (0.4-5.4); Lymphocytes % (auto) 28.8 % (10.0-50.0); Mean Corpuscular Hemoglobin 32.3 pg (28.0-32.0); Mean Corpuscular Hgb Conc. 33.4 g/dL (32.0-36.0); Mean Corpuscular Volume 96.5 fL (80.0-100.0); Monocytes # (auto) 0.3 10 ^3/uL (0-1.3); Monocytes % (auto) 11.8 % (0.0-12.0); Neutrophils # (auto) 1.1 10 ^3/uL (1.6-8.6); Neutrophils % (auto) 51.6 % (37.0-80.0); Nucleated Red Blood Cells % 0.1 %; Red Blood Cells 3.08 10^6/uL (4.0-5.20); White Blood Cell 2.2 10^3/uL (4.4-10.8)
[2023-01-16 06:34] LABS: BUN/Creatinine Ratio 9.8 (10.0-20.0); Blood Urea Nitrogen < 5 mg/dL (9-23)
[2023-01-16 08:00] VITALS: PULSE 59
[2023-01-16] MEDS: LACTULOSE 20Gm/30ML SOLN PO SCH ×2 (08:56→23:41)
[2023-01-16] MEDS: LACOSAMIDE 50 MG TAB PO SCH ×2 (08:57→23:48)
[2023-01-16] MEDS: FAMOTIDINE (10MG/ML) 2ML VL IV SCH ×2 (08:57→23:41)
[2023-01-16] MEDS: rifAXIMin 550 MG TAB PO SCH ×2 (08:58→23:41)
[2023-01-16 09:00] VITALS: BP 135/71; PULSE 64; RESP 20; TEMP 97.5; O2SAT 96
[2023-01-16] MEDS ORDERED: MAGNESIUM OXIDE 400 MG TAB PO ONE (09:15)
[2023-01-16] MEDS ORDERED: POTASSIUM EFFERVESENT TAB 25 MEQ GT ONE (09:15)
[2023-01-16 13:00] VITALS: BP 135/72; PULSE 69; RESP 20; TEMP 97.6; O2SAT 95
[2023-01-16 13:26] LABS: COVID19 ANTIGEN SOFIA FIA NEGATIVE (NEGATIVE); Rapid Influenza A Negative (Negative); Rapid Influenza B Negative (Negative)
[2023-01-16] MEDS ORDERED: LORazepam 2MG/ML-1ML VIAL IV PRN (15:00)
[2023-01-16] MEDS: LORazepam 2MG/ML-1ML VIAL IV PRN (15:18)
[2023-01-16 17:00] VITALS: BP 142/66; PULSE 71; RESP 20; TEMP 97.5; O2SAT 95
[2023-01-16 20:00] VITALS: PULSE 82; O2SAT 95
[2023-01-17] VITALS (8 sets, daily range): BP systolic 110–161; BP diastolic 63–89; PULSE 60–72; RESP 18–21; TEMP 97.6–98.9; O2SAT 95–100
[2023-01-17] MEDS: LORazepam 2MG/ML-1ML VIAL IV PRN (03:20)
[2023-01-17] MEDS: CEFEPIME 1GM/ 50ML 50 ML IV SCH ×2 (05:23→16:59)
[2023-01-17] MEDS: LINEZOLID 600MG/300ML 300 ML IV SCH ×2 (05:24→20:28)
[2023-01-17 05:43] LABS: Basophils # (auto) 0 10 ^3/uL (0-0.2); Basophils % (auto) 0.6 % (0.0-2.0); Eosinophils # (auto) 0.2 10 ^3/uL (0-0.8); Eosinophils % (auto) 5.4 % (0.0-7.0); Hematocrit 32.2 % (36.0-46.0); Hemoglobin 10.7 g/dL (12.2-16.2); Lymphocytes # (auto) 0.9 10 ^3/uL (0.4-5.4); Lymphocytes % (auto) 25.6 % (10.0-50.0); Mean Corpuscular Hgb Conc. 33.2 g/dL (32.0-36.0); Mean Corpuscular Volume 93.5 fL (80.0-100.0); Monocytes # (auto) 0.3 10 ^3/uL (0-1.3); Monocytes % (auto) 7.9 % (0.0-12.0); Neutrophils # (auto) 2.2 10 ^3/uL (1.6-8.6); Neutrophils % (auto) 60.5 % (37.0-80.0); Nucleated Red Blood Cells % 0.1 %; Red Blood Cells 3.44 10^6/uL (4.0-5.20); Red Cell Distribution Width 18.9 % (11.8-14.3); White Blood Cell 3.6 10^3/uL (4.4-10.8)
[2023-01-17 06:02] LABS: Alanine Aminotransferase 18 U/L (7-40); Albumin 2.9 g/dL (3.2-4.8); Alkaline Phosphatase 105 U/L (46-116); Anion Gap 6 (5-15); Aspartate Aminotransferase 52 U/L (13-40); BUN/Creatinine Ratio 13.7 (10.0-20.0); Blood Urea Nitrogen 7 mg/dL (9-23); CRP High Sensitivity 0.15 mg/dL (<1.0); Calcium 8.7 mg/dL (8.5-10.1); Carbon Dioxide 25 mmol/L (20-30); Chloride 106 mmol/L (98-107); Glucose 91 mg/dL (74-106); Sodium 137 mmol/L (136-145)
[2023-01-17 06:03] LABS: Bilirubin, Total 1.4 mg/dL (0.2-1.0); Total Protein 7.6 g/dL (5.7-8.2)
[2023-01-17 06:17] LABS: Lipase 63 U/L (12-53); Magnesium 1.7 mg/dL (1.6-2.6)
[2023-01-17 06:22] LABS: Erythrocyte Sedimentation Rate 41 mm/hr (0-20)
[2023-01-17] MEDS: LACOSAMIDE 50 MG TAB PO SCH ×2 (09:15→21:15)
[2023-01-17] MEDS: FAMOTIDINE (10MG/ML) 2ML VL IV SCH ×2 (11:18→23:11)
[2023-01-17] MEDS: LACTULOSE 20Gm/30ML SOLN PO SCH ×2 (11:23→23:09)
[2023-01-17] MEDS ORDERED: phytonadione 5 MG in SODIUM CHL 0.9% 50 ML IV ONE (21:30)
[2023-01-17] MEDS ORDERED: hydrALAZINE HCL 20 MG/ML VL IV PRN (21:30)
[2023-01-18] VITALS (7 sets, daily range): BP systolic 100–149; BP diastolic 47–79; PULSE 59–73; RESP 16–22; TEMP 97.2–98.9; O2SAT 94–100
[2023-01-18] MEDS: PIPERACILLIN-TAZOB 3.375GM 100 ML IV SCH ×4 (00:44→22:27)
[2023-01-18] MEDS: LINEZOLID 600MG/300ML 300 ML IV SCH ×2 (06:08→18:31)
[2023-01-18] MEDS: LACTULOSE 20Gm/30ML SOLN PO SCH ×3 (06:24→22:12)
[2023-01-18 06:55] LABS: Basophils # (auto) 0 10 ^3/uL (0-0.2); Basophils % (auto) 0.6 % (0.0-2.0); Eosinophils # (auto) 0.2 10 ^3/uL (0-0.8); Eosinophils % (auto) 6.5 % (0.0-7.0); Hematocrit 30.7 % (36.0-46.0); Hemoglobin 10.3 g/dL (12.2-16.2); Lymphocytes # (auto) 0.8 10 ^3/uL (0.4-5.4); Mean Corpuscular Hemoglobin 31.4 pg (28.0-32.0); Mean Corpuscular Hgb Conc. 33.5 g/dL (32.0-36.0); Mean Corpuscular Volume 93.8 fL (80.0-100.0); Monocytes # (auto) 0.2 10 ^3/uL (0-1.3); Monocytes % (auto) 7.5 % (0.0-12.0); Neutrophils # (auto) 1.5 10 ^3/uL (1.6-8.6); Neutrophils % (auto) 56.4 % (37.0-80.0); Nucleated Red Blood Cells % 0.1 %; Red Blood Cells 3.27 10^6/uL (4.0-5.20); Red Cell Distribution Width 18.6 % (11.8-14.3); White Blood Cell 2.7 10^3/uL (4.4-10.8)
[2023-01-18 07:01] LABS: Alanine Aminotransferase 18 U/L (7-40); Alkaline Phosphatase 94 U/L (46-116); Anion Gap 6 (5-15); Aspartate Aminotransferase 44 U/L (13-40); BUN/Creatinine Ratio 15.6 (10.0-20.0); Blood Urea Nitrogen 7 mg/dL (9-23); CRP High Sensitivity 0.11 mg/dL (<1.0); Calcium 8.7 mg/dL (8.5-10.1); Carbon Dioxide 26 mmol/L (20-30); Chloride 106 mmol/L (98-107); Glucose 87 mg/dL (74-106); LDL Cholesterol 26 mg/dL (< 100); Potassium 3.8 mmol/L (3.5-5.1); Sodium 138 mmol/L (136-145); Triglycerides 30 mg/dL (< 150)
[2023-01-18 07:02] LABS: Albumin 2.8 g/dL (3.2-4.8); Bilirubin, Total 1.7 mg/dL (0.2-1.0); Cholesterol 52 mg/dL (< 200); HDL Cholesterol 15 mg/dL (40-59); Total Protein 7.5 g/dL (5.7-8.2)
[2023-01-18 07:04] LABS: INR 1.51 (0.9-1.15); Partial Thromboplastin Time 36.9 SEC (24.5-34.5); Prothrombin Time 15.4 sec (9.3-11.8)
[2023-01-18 07:31] LABS: Erythrocyte Sedimentation Rate 35 mm/hr (0-20)
[2023-01-18 09:59] LABS: Lipase 51 U/L (12-53); Magnesium 1.6 mg/dL (1.6-2.6)
[2023-01-18] MEDS: FAMOTIDINE (10MG/ML) 2ML VL IV SCH ×2 (11:39→22:12)
[2023-01-18] MEDS: LACOSAMIDE 50 MG TAB PO SCH (11:41)
[2023-01-18] MEDS ORDERED: LACOSAMIDE 50 MG TAB PO ONE (20:00)
[2023-01-19 05:00] VITALS: BP 116/65; PULSE 64; RESP 18; TEMP 98.8; O2SAT 98
[2023-01-19] MEDS: LACTULOSE 20Gm/30ML SOLN PO SCH ×3 (06:19→21:39)
[2023-01-19] MEDS: LINEZOLID 600MG/300ML 300 ML IV SCH ×2 (06:19→17:52)
[2023-01-19] MEDS: LACOSAMIDE 50 MG TAB PO SCH ×2 (06:20→17:52)
[2023-01-19 06:52] LABS: Basophils # (auto) 0 10 ^3/uL (0-0.2); Basophils % (auto) 0.8 % (0.0-2.0); Eosinophils # (auto) 0.2 10 ^3/uL (0-0.8); Hematocrit 29.9 % (36.0-46.0); Hemoglobin 10.1 g/dL (12.2-16.2); Mean Corpuscular Hemoglobin 31.7 pg (28.0-32.0); Mean Corpuscular Hgb Conc. 33.6 g/dL (32.0-36.0); Mean Corpuscular Volume 94.1 fL (80.0-100.0); Monocytes # (auto) 0.2 10 ^3/uL (0-1.3); Monocytes % (auto) 6.9 % (0.0-12.0); Neutrophils # (auto) 1.4 10 ^3/uL (1.6-8.6); Neutrophils % (auto) 51.3 % (37.0-80.0); Nucleated Red Blood Cells % 0.3 %; Red Blood Cells 3.18 10^6/uL (4.0-5.20); Red Cell Distribution Width 18.7 % (11.8-14.3); White Blood Cell 2.7 10^3/uL (4.4-10.8)
[2023-01-19 08:00] VITALS: PULSE 57
[2023-01-19 09:05] VITALS: BP 121/62; PULSE 62; RESP 17; TEMP 98.5; O2SAT 97
[2023-01-19] MEDS: PIPERACILLIN-TAZOB 3.375GM 100 ML IV SCH ×3 (09:09→22:15)
[2023-01-19] MEDS: FAMOTIDINE (10MG/ML) 2ML VL IV SCH ×2 (10:47→21:39)
[2023-01-19 13:00] VITALS: BP 130/68; PULSE 69; RESP 18; TEMP 98.3; O2SAT 98
[2023-01-19 16:30] VITALS: BP 124/60; PULSE 64; RESP 17; TEMP 98.4; O2SAT 97
[2023-01-19 20:00] VITALS: PULSE 61
[2023-01-20] MEDS: LACOSAMIDE 50 MG TAB PO SCH ×2 (05:16→17:30)
[2023-01-20] MEDS: LACTULOSE 20Gm/30ML SOLN PO SCH ×3 (05:16→23:21)
[2023-01-20] MEDS: LINEZOLID 600MG/300ML 300 ML IV SCH (05:16)
[2023-01-20 05:47] LABS: Basophils # (auto) 0 10 ^3/uL (0-0.2); Basophils % (auto) 0.5 % (0.0-2.0); Eosinophils # (auto) 0.2 10 ^3/uL (0-0.8); Eosinophils % (auto) 5.3 % (0.0-7.0); Hemoglobin 10.3 g/dL (12.2-16.2); Lymphocytes # (auto) 1.1 10 ^3/uL (0.4-5.4); Lymphocytes % (auto) 36.2 % (10.0-50.0); Mean Corpuscular Hemoglobin 31.3 pg (28.0-32.0); Mean Corpuscular Hgb Conc. 32.3 g/dL (32.0-36.0); Monocytes # (auto) 0.2 10 ^3/uL (0-1.3); Monocytes % (auto) 5.5 % (0.0-12.0); Neutrophils # (auto) 1.6 10 ^3/uL (1.6-8.6); Neutrophils % (auto) 52.5 % (37.0-80.0); Nucleated Red Blood Cells % 0.6 %; Red Cell Distribution Width 19.2 % (11.8-14.3)
[2023-01-20 06:11] LABS: Alanine Aminotransferase 17 U/L (7-40); Albumin 2.9 g/dL (3.2-4.8); Alkaline Phosphatase 92 U/L (46-116); Anion Gap 7 (5-15); Aspartate Aminotransferase 42 U/L (13-40); BUN/Creatinine Ratio 13.4 (10.0-20.0); Bilirubin, Total 1.5 mg/dL (0.2-1.0); Blood Urea Nitrogen 9 mg/dL (9-23); CRP High Sensitivity 0.06 mg/dL (<1.0); Calcium 8.7 mg/dL (8.5-10.1); Carbon Dioxide 26 mmol/L (20-30); Chloride 104 mmol/L (98-107); Glucose 88 mg/dL (74-106); Potassium 3.8 mmol/L (3.5-5.1); Sodium 137 mmol/L (136-145); Total Protein 7.7 g/dL (5.7-8.2)
[2023-01-20 07:31] LABS: Erythrocyte Sedimentation Rate 39 mm/hr (0-20)
[2023-01-20 08:00] VITALS: BP 108/58; PULSE 70; PULSE 74; RESP 16; TEMP 97; O2SAT 100
[2023-01-20] MEDS: PIPERACILLIN-TAZOB 3.375GM 100 ML IV SCH ×2 (08:41→15:44)
[2023-01-20] MEDS: FAMOTIDINE (10MG/ML) 2ML VL IV SCH ×2 (10:52→23:21)
[2023-01-20 13:00] VITALS: BP 129/60; PULSE 69; RESP 20; TEMP 97.4; O2SAT 98
[2023-01-20 17:00] VITALS: BP 128/73; PULSE 69; RESP 20; TEMP 98.2; O2SAT 99
[2023-01-20 20:00] VITALS: PULSE 63
[2023-01-20 22:00] VITALS: BP 130/69; PULSE 77; RESP 19; TEMP 97.8; O2SAT 97
[2023-01-21] VITALS (7 sets, daily range): BP systolic 96–139; BP diastolic 43–80; PULSE 72–100; RESP 14–20; TEMP 97.2–98.7; O2SAT 99–100
[2023-01-21 02:33] LABS: Basophils # (auto) 0 10 ^3/uL (0-0.2); Basophils % (auto) 0.5 % (0.0-2.0); Eosinophils # (auto) 0.2 10 ^3/uL (0-0.8); Eosinophils % (auto) 4.2 % (0.0-7.0); Hematocrit 28.8 % (36.0-46.0); Hemoglobin 9.4 g/dL (12.2-16.2); Lymphocytes # (auto) 1.7 10 ^3/uL (0.4-5.4); Lymphocytes % (auto) 35.8 % (10.0-50.0); Mean Corpuscular Hemoglobin 30.9 pg (28.0-32.0); Mean Corpuscular Hgb Conc. 32.5 g/dL (32.0-36.0); Mean Corpuscular Volume 94.8 fL (80.0-100.0); Monocytes # (auto) 0.2 10 ^3/uL (0-1.3); Monocytes % (auto) 4.8 % (0.0-12.0); Neutrophils # (auto) 2.7 10 ^3/uL (1.6-8.6); Neutrophils % (auto) 54.7 % (37.0-80.0); Nucleated Red Blood Cells % 0.1 %; Red Blood Cells 3.04 10^6/uL (4.0-5.20); White Blood Cell 4.9 10^3/uL (4.4-10.8)
[2023-01-21] MEDS: OCTREOTIDE ACETATE 500 MCG in SODIUM CHL 0.9% 99 ML IV SCH ×3 (03:15→23:33)
[2023-01-21] MEDS: LACTULOSE 20Gm/30ML SOLN PO SCH ×3 (06:00→22:00)
[2023-01-21] MEDS: LACOSAMIDE 50 MG TAB PO SCH ×2 (06:00→18:00)
[2023-01-21 06:18] LABS: Basophils # (auto) 0 10 ^3/uL (0-0.2); Basophils % (auto) 0.5 % (0.0-2.0); Eosinophils # (auto) 0.1 10 ^3/uL (0-0.8); Eosinophils % (auto) 2.3 % (0.0-7.0); Hematocrit 29.5 % (36.0-46.0); Hemoglobin 9.7 g/dL (12.2-16.2); Lymphocytes % (auto) 18.1 % (10.0-50.0); Mean Corpuscular Hemoglobin 31.6 pg (28.0-32.0); Mean Corpuscular Hgb Conc. 32.8 g/dL (32.0-36.0); Mean Corpuscular Volume 96.3 fL (80.0-100.0); Monocytes # (auto) 0.2 10 ^3/uL (0-1.3); Neutrophils # (auto) 4.4 10 ^3/uL (1.6-8.6); Neutrophils % (auto) 76.1 % (37.0-80.0); Red Blood Cells 3.06 10^6/uL (4.0-5.20); Red Cell Distribution Width 18.5 % (11.8-14.3); White Blood Cell 5.8 10^3/uL (4.4-10.8)
[2023-01-21 06:41] LABS: Alanine Aminotransferase 17 U/L (7-40); Alkaline Phosphatase 96 U/L (46-116); Anion Gap 9 (5-15); BUN/Creatinine Ratio 15.1 (10.0-20.0); Blood Urea Nitrogen 14 mg/dL (9-23); Carbon Dioxide 23 mmol/L (20-30); Chloride 106 mmol/L (98-107); Glucose 111 mg/dL (74-106); Potassium 4.8 mmol/L (3.5-5.1); Sodium 138 mmol/L (136-145)
[2023-01-21 06:42] LABS: Albumin 2.8 g/dL (3.2-4.8); Aspartate Aminotransferase 41 U/L (13-40); Bilirubin, Total 1.4 mg/dL (0.2-1.0); Total Protein 7.6 g/dL (5.7-8.2)
[2023-01-21 09:17] LABS: INR 1.58 (0.9-1.15); Prothrombin Time 16.1 sec (9.3-11.8)
[2023-01-21 10:11] LABS: CRP High Sensitivity 0.05 mg/dL (<1.0)
[2023-01-21] MEDS: PANTOPRAZOLE 40 MG/10 ML VIAL INJ IV SCH ×3 (11:17→22:02)
[2023-01-21] MEDS: FAMOTIDINE (10MG/ML) 2ML VL IV SCH ×2 (11:17→22:02)
[2023-01-21 14:05] LABS: Erythrocyte Sedimentation Rate 28 mm/hr (0-20)
[2023-01-21 16:12] LABS: Lipase 56 U/L (12-53)
[2023-01-21 18:31] LABS: Basophils # (auto) 0 10 ^3/uL (0-0.2); Basophils % (auto) 0.9 % (0.0-2.0); Eosinophils # (auto) 0.1 10 ^3/uL (0-0.8); Hemoglobin 8.4 g/dL (12.2-16.2); Lymphocytes # (auto) 1.3 10 ^3/uL (0.4-5.4); Monocytes # (auto) 0.2 10 ^3/uL (0-1.3); Nucleated Red Blood Cells % 0.1 %; Red Blood Cells 2.71 10^6/uL (4.0-5.20)
[2023-01-21 18:33] LABS: Eosinophils % (auto) 3.3 % (0.0-7.0); Hematocrit 25.7 % (36.0-46.0); Lymphocytes % (auto) 34.9 % (10.0-50.0); Mean Corpuscular Hgb Conc. 32.7 g/dL (32.0-36.0); Mean Corpuscular Volume 94.8 fL (80.0-100.0); Monocytes % (auto) 6.3 % (0.0-12.0); Neutrophils % (auto) 54.6 % (37.0-80.0); Red Cell Distribution Width 18.8 % (11.8-14.3); White Blood Cell 3.7 10^3/uL (4.4-10.8)
[2023-01-21 18:47] LABS: INR 1.44 (0.9-1.15); Partial Thromboplastin Time 30.9 SEC (24.5-34.5); Prothrombin Time 14.8 sec (9.3-11.8)
[2023-01-22] MEDS: LACOSAMIDE 50 MG TAB PO SCH (06:00)
[2023-01-22] MEDS: LACTULOSE 20Gm/30ML SOLN PO SCH (06:00)
[2023-01-22] MEDS: OCTREOTIDE ACETATE 500 MCG in SODIUM CHL 0.9% 99 ML IV SCH (08:48)
[2023-01-22] MEDS: FAMOTIDINE (10MG/ML) 2ML VL IV SCH (10:15)
[2023-01-22] MEDS: PANTOPRAZOLE 40 MG/10 ML VIAL INJ IV SCH (10:16)
== END 2023-01-22 11:56 | disposition hospice, home (50) | DRG 280 ==
LOC: ER 04:10 → EDBD 04:10 → TELE 10:14 → TELE-EAST 21:20 → TELE-E-ADS 01-05 10:30 → ICU CENTRL 01-06 14:08 → DOU IN ICU 01-07 00:52 → TELE-EAST 01-11 16:49
PROVIDERS: ADMIT Internal Medicine Geriatric Medicine; ATTEND Internal Medicine Geriatric Medicine
PROC: 05H933Z Insertion of Infusion Device into Right Brachial Vein, Percutaneous Approach (ICD-10-PCS; principal; 2023-01-06)
PROC: B54MZZA Ultrasonography of Right Upper Extremity Veins, Guidance (ICD-10-PCS; 2023-01-06)
DX: K70.31 Alcoholic cirrhosis of liver with ascites (principal); D61.818 Other pancytopenia; E43 Unspecified severe protein-calorie malnutrition; K85.90 Acute pancreatitis without necrosis or infection, unspecified; G93.41 Metabolic encephalopathy; G40.401 Other generalized epilepsy and epileptic syndromes, not intractable, with status epilepticus; I85.11 Secondary esophageal varices with bleeding; D68.4 Acquired coagulation factor deficiency; D68.59 Other primary thrombophilia; K61.0 Anal abscess; F10.239 Alcohol dependence with withdrawal, unspecified; Z20.822 Contact with and (suspected) exposure to COVID-19; K76.82 Hepatic encephalopathy; E88.09 Other disorders of plasma-protein metabolism, not elsewhere classified; R74.01 Elevation of levels of liver transaminase levels; D50.0 Iron deficiency anemia secondary to blood loss (chronic); B19.20 Unspecified viral hepatitis C without hepatic coma; B95.2 Enterococcus as the cause of diseases classified elsewhere; E83.42 Hypomagnesemia; E87.6 Hypokalemia; F17.200 Nicotine dependence, unspecified, uncomplicated; K80.20 Calculus of gallbladder without cholecystitis without obstruction; N39.0 Urinary tract infection, site not specified; J18.9 Pneumonia, unspecified organism; J98.11 Atelectasis; Z16.21 Resistance to vancomycin; E86.0 Dehydration; N12 Tubulo-interstitial nephritis, not specified as acute or chronic; L89.321 Pressure ulcer of left buttock, stage 1; M48.56XA Collapsed vertebra, not elsewhere classified, lumbar region, initial encounter for fracture; I50.32 Chronic diastolic (congestive) heart failure; Z83.3 Family history of diabetes mellitus; Z79.899 Other long term (current) drug therapy; Z78.9 Other specified health status; Z68.21 Body mass index [BMI] 21.0-21.9, adult
CPT/HCPCS: 36415; 36600; 70450; 70551; 71045; 71250; 74178; 74181; 76705; 80053; 80061; 80074; 80202; 80307; 80320; 81001; 82105; 82140; 82248; 82270; 82306; 82378; 82542; 82550; 82607; 82805; 82962; 83036; 83605; 83615; 83690; 83735; 83880; 84100; 84443; 84478; 84484; 85007; 85025; 85027; 85610; 85652; 85730; 86141; 86301; 86703; 86850; 86900; 86901; 87040; 87081; 87086; 87088; 87186; 87426; 87804; 92610; 93005; 93306; 95819; 96361; 96365; 96372; 96375; 97110; 97116; 97163; 97530; 99291; C9113; G0378; J0696; J1815; J2250; J2543; J3430; J3480; J3490; J7060; J7131